=== PATIENT | male | born 1950 | race Caucasian/White ===

== ENCOUNTER 2024-02-18 11:04 | Outpatient (CLI) | payer MEDICARE ==
[2024-02-18 12:16] LABS: #Basophils 0.05 10x3/uL (0.0-0.2); #Eosinophils 0.25 10x3/uL (0.0-0.5); #Monocytes 0.64 10x3/uL (0.0-1.1); #Neutrophils 6.14 10x3/uL (1.5-8.4); %Basophils 0.6 % (0.0-2.0); %Eosinophils 2.8 % (0.0-6.0); %Monocytes 7.3 % (0.0-10.0); Anion Gap 16 mmol/L (10-20); BUN (Urea Nitrogen) 22 mg/dL (8.4-25.7); Calc. Creatinine Clearance 0 mL/min (70-130); Calcium 9.5 mg/dL (7.8-10.44); Carbon Dioxide 20 mmol/L (23-31); Chloride 110 mmol/L (98-107); Estimated GFR 72; Glucose 105 mg/dL (83-110); Hematocrit 51.5 % (38.8-50.0); Hemoglobin 16.7 g/dL (13.5-17.5); Mean Corpuscular HGB CONC 32.4 g/dL (32.0-36.0); Mean Corpuscular Hemoglobin 28.9 pg (27.0-33.0); Mean Corpuscular Volume 89.1 fL (81.2-95.1); Mean Platelet Volume 10.6 fL (7.4-10.4); Platelet Count 191 10x3/uL (150-450); Potassium 4.5 mmol/L (3.5-5.1); RBC Distribution Width 14.3 % (11.5-14.5); Red Blood Cell (RBC) Count 5.78 10x6/uL (4.32-5.72); Sodium 141 mmol/L (136-145); White Blood Cell (WBC) Count 8.8 10x3/uL (3.5-10.5)
== END 2024-02-18 11:05 | disposition home or self-care (01) ==
LOC: CSHLAB 11:04
PROVIDERS: ATTEND Surgery
DX: Z01.818 Encounter for other preprocedural examination (principal); K40.91 Unilateral inguinal hernia, without obstruction or gangrene, recurrent
CPT/HCPCS: 80048; 85025; 93005; 93010

== ENCOUNTER 2024-02-22 07:21 | Day surgery (SDC) | payer MEDICARE ==
[2024-02-18 11:21] VITALS: BMI 23.2
[2024-02-22] MEDS ORDERED: Rocuronium Bromide 10 MG/ML (10ML VIAL) ONE (08:13)
[2024-02-22] MEDS ORDERED: Lidocaine 1% PF 5 ML VIAL ONE (08:13)
[2024-02-22] MEDS ORDERED: PROPOFOL 20 ML ONE (08:14)
[2024-02-22] MEDS ORDERED: fentaNYL 50 mcg/mL 1 mL Vial ONE ×2 (08:16→09:33)
[2024-02-22] MEDS ORDERED: Bupivacaine/Epinephrine 0.25% 30 ML VIAL ONE (08:55)
[2024-02-22] MEDS ORDERED: CEFAZOLIN 2 GM VIAL ONE (08:55)
[2024-02-22] MEDS ORDERED: Dexamethasone 4 mg/ml Vial ONE (09:33)
[2024-02-22] MEDS ORDERED: PHENYLEPHRINE-NS 100 MCG/ML 10 ML SYRINGE ONE (09:40)
[2024-02-22] MEDS ORDERED: ePHEDrine Sulfate 50 MG/10 ML VIAL ONE (09:52)
[2024-02-22] MEDS ORDERED: SUGAMMADEX SODIUM 200 MG/2 ML VIAL ONE (10:42)
[2024-02-22] MEDS ORDERED: Ondansetron PF 4 MG/2 ML Vial ONE (10:42)
[2024-02-22] MEDS ORDERED: HYDROcodone/Acetaminophen 5/325 mg Tablet ONE (11:56)
== END 2024-02-22 12:30 | disposition home or self-care (01) ==
LOC: CSHSDC 07:21
PROVIDERS: ATTEND Surgery
PROC: 0YUA4JZ Supplement Bilateral Inguinal Region with Synthetic Substitute, Percutaneous Endoscopic Approach (ICD-10-PCS; principal; 2024-02-22)
DX: K40.20 Bilateral inguinal hernia, without obstruction or gangrene, not specified as recurrent (principal); Z90.49 Acquired absence of other specified parts of digestive tract; Z79.899 Other long term (current) drug therapy
CPT/HCPCS: 49650; C1781 ×2; J1100; J2405; J2704; J3010; S2900

== ENCOUNTER 2024-05-11 07:39 | Emergency (ER) | payer MEDICARE ==
[2024-05-11] MEDS ORDERED: Famotidine/PF 20 mg/2ml Vial ONE (08:32)
[2024-05-11] MEDS ORDERED: Ondansetron PF 4 MG/2 ML Vial ONE (08:32)
[2024-05-11 09:04] LABS: Hematocrit 51.2 % (38.8-50.0); Hemoglobin 16.6 g/dL (13.5-17.5); Mean Corpuscular HGB CONC 32.4 g/dL (32.0-36.0); Mean Corpuscular Hemoglobin 27.3 pg (27.0-33.0); Mean Corpuscular Volume 84.1 fL (81.2-95.1); Mean Platelet Volume 10.5 fL (7.4-10.4); Platelet Count 152 10x3/uL (150-450); RBC Distribution Width 14.7 % (11.5-14.5); Red Blood Cell (RBC) Count 6.09 10x6/uL (4.32-5.72); White Blood Cell (WBC) Count 8.17 10x3/uL (3.5-10.5)
[2024-05-11 09:15] LABS: ALT (SGPT) 59 U/L (Less than 45); AST (SGOT) 54 U/L (11-34); Albumin 4.2 g/dL (3.1-4.5); Alkaline Phosphatase 44 U/L (40-110); Anion Gap 17 mmol/L (10-20); BUN (Urea Nitrogen) 17 mg/dL (8.4-25.7); Bilirubin, Total 1.7 mg/dL (0.3-1.2); Calc. Creatinine Clearance 0 mL/min (70-130); Calcium 8.8 mg/dL (7.8-10.44); Carbon Dioxide 19 mmol/L (23-31); Chloride 105 mmol/L (98-107); Estimated GFR 72; Globulin 3.3 g/dL (2.4-3.5); Glucose 125 mg/dL (83-110); Lipase 38 U/L (8-78); Protein, Total 7.5 g/dL (5.8-8.1); Sodium 136 mmol/L (136-145)
[2024-05-11 09:42] LABS: Band 10 % (5-11); Eosinophils 1 % (0-10); Lymphocytes 3 % (21-51); MDiff Complete? YES; Monocytes 8 % (0-10); Neutrophil 75 % (42-75); Platelet Adequacy Comment Appears Adequate; RBC Morphology Within Normal Limits; Reactive Lymphocytes 3 % (0-10)
[2024-05-11 10:49] LABS: Troponin I Less than 0.010 ng/mL (< 0.028)
== END 2024-05-11 11:17 | disposition home or self-care (01) ==
LOC: CSHERS 07:39
DX: K20.90 Esophagitis, unspecified without bleeding (principal); R05.9 Cough, unspecified
CPT/HCPCS: 71045; 74177; 80053; 83690; 83735; 83880; 84484; 85025; 93005; J2405; J3490; 96374; 96375